=== PATIENT | male | born 1995 | race Caucasian/White ===

== ENCOUNTER → 2017-07-27 | Outpatient (REF) | payer OTHER | LOC: M LAB REF 13:47 | PROVIDERS: ATTEND Internal Medicine Medical Oncology | DX: I82.409 Acute embolism and thrombosis of unspecified deep veins of unspecified lower extremity (principal) ==

== ENCOUNTER → 2017-10-24 | Outpatient (CLI) | payer OTHER | LOC: M RAD 06:32 | DX: M79.604 Pain in right leg (principal) ==